=== PATIENT | male | born 1975 ===

== ENCOUNTER 2017-03-30 11:00 | Emergency (ER) | payer OTHER ==
[2017-03-30 11:17] VITALS: BMI 32.0
[2017-03-30 11:18] VITALS: RESP 18; TEMP 97.5
--- NOTE | 2017-03-30 12:10 | RAD ---
HISTORY: COMPARISON: All no No prior. TECHNIQUE: Chest PA and lateral FINDINGS: LINES AND TUBES: None. LUNG AND PLEURA: The lungs are well inflated and clear. HEART AND MEDIASTINUM: The heart is not enlarged. The hilar and mediastinal contours are within normal limits. SKELETAL STRUCTURES: There is question of an acute nondisplaced fracture in the left posterior 9th rib. VISUALIZED UPPER ABDOMEN: Normal. OTHER FINDINGS: None. IMPRESSION: Question of acute nondisplaced fracture in the left posterior 9th rib. Dedicated rib x-rays would be helpful for further evaluation.
--- NOTE | 2017-03-30 12:11 | RAD ---
PROCEDURE: Right Knee Radiographs. HISTORY: knee pain COMPARISON: None. FINDINGS: BONES: There is no acute displaced fracture or bone destruction. Bone alignment and mineralization are normal. JOINTS: Normal. JOINT EFFUSION: There is a small suprapatellar joint effusion. OTHER FINDINGS: None. IMPRESSION: No acute fracture or dislocation. Small suprapatellar joint effusion.
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
[2017-03-30 13:01] LABS: BASO # 0.01 K/mm3 (0.0-2.0); BASO % 0.1 % (0.0-3.0); EOS # 0.1 (0.0-0.7); EOS % 1.4 % (1.5-5.0); GRAN # 4.77 (1.4-6.5); GRAN % 66.3 % (50.0-68.0); HEMATOCRIT 41.6 % (42.0-52.0); LYMPH # 1.8 (1.2-3.4); LYMPH % 25.3 % (22.0-35.0); MEAN CORPUSCULAR HEMOGLOBIN 29.7 pg (25.0-35.0); MEAN CORPUSCULAR HGB CONC 35.3 g/dl (31.0-37.0); MEAN PLATELET VOLUME 9.7 fl (7.0-11.0); MONO # 0.5 (0.1-0.6); MONO % 6.9 % (1.0-6.0); RED CELL DISTRIBUTION WIDTH 12.2 % (11.5-14.5); WHITE BLOOD COUNT 7.2 10^3/ul (4.5-11.0)
[2017-03-30] MEDS ORDERED: Iohexol 350 MG/100 ML VIAL ONE (13:06)
[2017-03-30 13:16] LABS: ALB/GLOB RATIO 1.4 (1.1-1.8); ALKALINE PHOSPHATASE 60 U/L (38-126); ALT/SGPT 40 U/L (7-56); AST/SGOT 29 U/L (17-59); BLOOD UREA NITROGEN 23 mg/dL (7-21); CALCIUM 9.5 mg/dL (8.4-10.5); CARBON DIOXIDE 29 mmol/L (21-33); CHLORIDE 104 mmol/L (98-107); GFR AFRICAN-AMERICAN > 60; GLUCOSE,RANDOM 152 mg/dL (70-110); POTASSIUM 4.2 mmol/L (3.6-5.0); SODIUM 142 mmol/L (132-148); TOTAL PROTEIN 7.4 g/dL (5.8-8.3)
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
[2017-03-30 15:04] VITALS: BP 150/98; PULSE 87; O2SAT 97
--- NOTE | 2017-03-31 16:06 | CARD ---
APPROVED REPORT EKG Measurement Heart [id number] <Conclusion> Normal sinus rhythm Normal ECG
== END 2017-03-30 15:32 | disposition home or self-care (01) ==
LOC: EDBD → ED 11:00
DX: S20.212A Contusion of left front wall of thorax, initial encounter (principal); V49.49XA Driver injured in collision with other motor vehicles in traffic accident, initial encounter; Y92.410 Unspecified street and highway as the place of occurrence of the external cause; M25.561 Pain in right knee; M54.5 Low back pain
CPT/HCPCS: 71020; 71260; 72110; 73562; 80053; 85025; 93005; 96372; 99285; J1885; Q9967